=== PATIENT | female | born 1970 | race Caucasian/White ===

== ENCOUNTER 2016-08-22 07:28 | Inpatient (IN) | payer BC ==
[2016-07-28 11:43] VITALS: BMI 32.0
--- NOTE | 2016-07-28 12:18 | PAT Medication Instructions ---
Service Date Jul 28, 2016. Current Home Medication List Acetaminophen (Tylenol), 650 MG PO Q6 PRN for Pain Albuterol Sulfate (Proair Respiclick), 2 PUFF INH Q4 PRN for SOB/Wheezing Escitalopram (Lexapro), 10 MG PO HS Ethinyl Estradiol/Norethindr (Loestrin ), 1 TAB PO HS Fluticasone Propionate (Nasal) (Flonase Allergy Relief), 2 SPRAY CELESTINE HS PRN for prn Ibuprofen (Motrin), 400 MG PO TID PRN for Pain Medication Instructions For Your Scheduled Surgery - Check with surgeon for instructions: Ibuprofen (Motrin), 400 MG PO TID PRN for Pain Ethinyl Estradiol/Norethindr (Loestrin ), 1 TAB PO HS - Take the following medications the morning of surgery with a sip of water: Fluticasone Propionate (Nasal) (Flonase Allergy Relief), 2 SPRAY CELESTINE HS PRN for prn Albuterol Sulfate (Proair Respiclick), 2 PUFF INH Q4 PRN for SOB/Wheezing ( bring with you to hospital morning of surgery) Acetaminophen (Tylenol), 650 MG PO Q6 PRN for Pain - Take the following medications as scheduled the night before surgery: Fluticasone Propionate (Nasal) (Flonase Allergy Relief), 2 SPRAY CELESTINE HS PRN for prn Escitalopram (Lexapro), 10 MG PO HS Albuterol Sulfate (Proair Respiclick), 2 PUFF INH Q4 PRN for SOB/Wheezing\ Acetaminophen (Tylenol), 650 MG PO Q6 PRN for Pain If you have any questions please call us at [phone] (Delisa Lomax PA-C) or [phone] or [phone]
[2016-07-28 12:52] LABS: BASO % 0.4 %; BASO ABS # 0.03 K/uL (0-0.2); COMPLETE YES; EOS % 2.9 %; HEMATOCRIT 37.2 % (37-47); IG% 0.3 %; LYMPH % 26.2 %; LYMPH ABS # 2.08 K/uL (1.2-3.4); MEAN CELL VOLUME 89.9 fL (80-100); MEAN CORPUSCULAR HEMOGLOBIN 31.6 pg (25-34); MEAN CORPUSCULAR HGB CONC 35.2 g/dl (32-36); MEAN PLATELET VOLUME 10.2 fL (7.4-10.4); MONO % 5.4 %; NEUT % 64.8 %; PLATELET COUNT 242 K/uL (130-400); RED BLOOD COUNT 4.14 M/uL (4.2-5.4); WHITE BLOOD COUNT 7.95 K/uL (4.8-10.8)
[2016-07-28 12:57] LABS: URINE APPEARANCE CLEAR (CLEAR); URINE BILIRUBIN NEG (NEG); URINE COLOR YELLOW; URINE NITRITE NEG (NEG); URINE PH 5.5 (4.5-7.5); URINE SPECIFIC GRAVITY 1.014 (1.000-1.030); UROBILINOGEN NEG (NEG); ZZUR CULT IF INDIC CLEAN CATCH NO
[2016-07-28 13:06] LABS: MANUAL MICROSCOPIC REQUIRED? NO; REVIEW REQ? NO
[2016-07-28 13:10] LABS: INR 1.1 (0.9-1.1); PROTHROMBIN TIME (PATIENT) 11.5 SECONDS (9.0-12.0)
--- NOTE | 2016-07-28 13:23 | DIAGNOSTIC IMAGING REPORT ---
CHEST 2 VIEWS ROUTINE CLINICAL HISTORY: Preoperative evaluation. COMPARISON STUDY: No previous studies for comparison. FINDINGS: Lung volumes are normal. There is no consolidation. There is no evidence of pulmonary edema. Cardiac size is normal. Mediastinal contours are normal. There is slight elevation/eventration of the right hemidiaphragm. IMPRESSION: No acute cardiopulmonary findings. Electronically signed by: Gama Hill M.D. 07/28/2016 1:21 PM Dictated Date/Time: 07/28/2016 1:20 PM
[2016-07-28 13:40] LABS: BUN/CREATININE RATIO 24.2 (10-20); CREATININE 0.64 mg/dl (0.60-1.20); POTASSIUM 3.8 mmol/L (3.5-5.1)
--- NOTE | 2016-08-16 12:40 | HISTORY & PHYSICAL EXAMINATION ---
DATE OF ADMISSION: 08/22/2016 CHIEF COMPLAINT: Right hip pain. HISTORY OF PRESENT ILLNESS: Isabel is a 45-year-old female with a 1 year history of pain in her right hip. The patient rates her pain a 6/10. She has pain with her daily activities. She has limited standing and walking tolerance. Pain is worse with weightbearing. The patient has had and anti-inflammatories and injections without relief. She has failed conservative treatment and is scheduled for right hip replacement. PAST MEDICAL HISTORY: She denies heart disease, diabetes or DVT. PAST SURGICAL HISTORY: Left total hip arthroplasty, left knee ACL repair, left knee arthroscopy. SOCIAL HISTORY: The patient denies alcohol or tobacco use. She lives in a 2-story home. She is and works as a school nurse. FAMILY HISTORY: Negative for DVT. MEDICATIONS: Loestrin, Lexapro 10 mg daily, Flonase nasal spray, ibuprofen p.r.n., Tylenol p.r.n., Proventil inhaler p.r.n. ALLERGIES: None. REVIEW OF SYSTEMS: See HPI. Ten other systems reviewed, all negative. PHYSICAL EXAMINATION: VITAL SIGNS: Height is 5 foot 4 inches, weight 187 pounds, BMI is 32. GENERAL: This is a well-developed, well-nourished female who is alert and oriented x3. Mood and affect are appropriate. HEENT: Normocephalic, atraumatic. Mucous membranes are moist and intact. NECK: Supple without lymphadenopathy. HEART: Regular rate and rhythm without murmurs, rubs or gallops. LUNGS: Clear to auscultation without wheezes or rhonchi. ABDOMEN: Soft and nontender. Bowel sounds are equal and active. EXTREMITIES: No ecchymosis, redness or warmth. Thigh and calf are soft and nontender. Log roll of the hip reproduces pain in the groin. Range of motion is decreased. She is neurovascularly intact with +5/5 strength. X-RAY EXAMINATION: AP and lateral views show joint space narrowing and osteophyte formation. IMPRESSION: Degenerative joint disease, right hip. PLAN: The patient will be admitted for a right total hip arthroplasty, direct anterior approach. We will plan on aspirin for DVT prophylaxis. The patient will have [facility] for home physical therapy.
[~2016-08-22] VITALS: Ht 162.6 cm; Wt 84.5 kg
[2016-08-22] VITALS (8 sets, daily range): BP systolic 112–135; BP diastolic 71–81; PULSE 76–91; TEMP 36.3–37; O2SAT 94–99; Ht 162.6 cm; Wt 84.5 kg
[~2016-08-22 07:28] MED LIST: ACET-1311 PO; ACETAMINOPHEN 500 MG TAB PO SCH; ALBU18002 INH; BUPIVACAINE 0.5 % 5 MG/1 ML PF 10ML VIAL ONE; CEFAZOLIN 2000 MG/60 ML D5W 60 ML IV SCH; CeleBREX 200 MG CAP PO SCH; DEXAMETHASONE 4 MG TAB PO SCH; ESCI10TA17 PO; FAMOTIDINE 20 MG TAB PO SCH; FLUT0.15 NAE; GABAPENTIN 300 MG CAP PO SCH; IBUP-1459 PO; LACTATED RINGER'S 1000ML IV SCH; LACTATED RINGER'S 500 ML IV SCH; METOCLOPRAMIDE HCL 10 MG TAB PO SCH; NORE-41 PO; OXYCODONE HCL 10 MG TABCR (OXYCONTIN) PO SCH; POLYMYXIN B SULFATE 100,000 UNITS in NSS 100ML IR SCH; ROPIVACAINE 5MG/ML 30 ML 150 MG, BUPIVACAINE/EPINEPHR 0.5% MPF 30 ML, KETOROLAC TROMETH... INFIL SCH; VANCOMYCIN INJ 400 MG in NSS 100ML IR SCH
[2016-08-22] MEDS ORDERED: ATROPINE SULFATE 0.1 MG/ML 5ML SYR IV PRN (08:30)
[2016-08-22] MEDS ORDERED: FENTANYL CITRATE INJ 50 MCG/1 ML 2 ML VIAL IV PRN (08:30)
[2016-08-22] MEDS ORDERED: ONDANSETRON INJ 2 MG/ML 2 ML VIAL IV PRN ×2 (08:30→12:00)
[2016-08-22] MEDS ORDERED: EpHEDrine SULFATE INJ 50 MG/ML AMP IV PRN (08:30)
--- NOTE | 2016-08-22 08:56 | History & Physical Bridge Note ---
H&P Re-Evaluation Bridge Note: I have examined the patient, reviewed the History & Physical and in the interval since the performance of the History & Physical I have noted the following changes of clinical significance: No changes noted
[2016-08-22] MEDS: TRANEXAMIC ACID INJ 1,000 MG in SODIUM CHLORIDE 0.9% 100ML 100 ML IV SCH ×2 (09:16→13:30)
[2016-08-22] MEDS ORDERED: FENTANYL CITRATE INJ 50 MCG/1 ML 2 ML VIAL ONE (09:32)
[2016-08-22] MEDS ORDERED: MIDAZOLAM HCL 1 MG/ML 2ML VIAL ONE (09:32)
[2016-08-22] MEDS ORDERED: ORTHO JOINT ANESTHETIC ONE (09:42)
[2016-08-22] MEDS ORDERED: POVIDONE-IODINE OP SOLN 30 ML BTL ONE (09:42)
[2016-08-22] MEDS ORDERED: BACITRACIN 50000 UNIT VIAL ONE (09:42)
[2016-08-22] MEDS ORDERED: POVIDONE-IODINE OP SOLN 30 ML BTL TOP ONE (11:01)
[2016-08-22] MEDS ORDERED: BACITRACIN 50000 UNIT VIAL IR ONE (11:01)
[2016-08-22] MEDS ORDERED: PHENYLEPHRINE HCL INJ 10 MG/ML VIAL ONE (11:14)
[2016-08-22] MEDS ORDERED: LIDOCAINE HCL 2% 2 ML VIAL (20MG/ML) ONE (11:14)
[2016-08-22] MEDS ORDERED: PROPOFOL IV EMULSION 10 MG/ML 20 ML VIAL IV ONE (11:14)
--- NOTE | 2016-08-22 11:46 | [facility] Post Operative Brief Note ---
Immediate Operative Summary Operative Date Aug 22, 2016. Pre-Operative Diagnosis right hip degenerative joint disease Post-Operative Diagnosis right hip degenerative joint disease Procedure(s) Performed Right Total Hip Arthroplasty Uncemented Direct Anterior Approach Surgeon Dr. Diego Lerner Power Superintendent Surgeon(s) Tea Green PA-c Estimated Blood Loss 200 ml Findings INFLMMATORY CHANGES Specimens A. Right femur Head Complication(s) None Disposition Recovery Room / PACU
[2016-08-22] MEDS ORDERED: FLUTICASONE PROPIONATE NA SPR 16 GM BTL NAE PRN (12:00)
[2016-08-22] MEDS ORDERED: BISACODYL 10 MG SUPP PR PRN (12:00)
[2016-08-22] MEDS ORDERED: METOCLOPRAMIDE HCL INJ 5 MG/ML 2 ML VIAL IV PRN (12:00)
[2016-08-22] MEDS ORDERED: ZOLPIDEM TARTRATE 5 MG TAB PO PRN (12:00)
[2016-08-22] MEDS ORDERED: MAGNESIUM HYDROXIDE SUSP 30 ML UDC PO PRN (12:00)
[2016-08-22] MEDS ORDERED: MoRPHine SULFATE 2 MG/ML CARP IV PRN (12:00)
[2016-08-22] MEDS ORDERED: DiphenhydrAMINE HCL 50 MG/ML VIAL IV PRN (12:00)
[2016-08-22] MEDS ORDERED: ALUMINUM/MAGNESIUM/SIMETH (MAALOX MAX) 30 ML UDC PO PRN (12:00)
[2016-08-22] MEDS ORDERED: SOD PHOSPHATE/SOD BIPHOSPHATE ENEMA 132 ML BTL PR PRN (12:00)
--- NOTE | 2016-08-22 12:15 | DIAGNOSTIC IMAGING REPORT ---
INTRAOPERATIVE FLUOROSCOPIC IMAGE OF THE RIGHT HIP CLINICAL HISTORY: Right hip arthroplasty. COMPARISON STUDY: No previous studies for comparison. FLUOROSCOPY TIME: 19.6 seconds. FINDINGS: A single AP fluoroscopic image of the right hip demonstrates anatomic alignment of the right hip arthroplasty. There is no fracture or unexpected radiopaque foreign body. Acetabular screw is partially imaged. IMPRESSION: Expected findings during right hip arthroplasty. Electronically signed by: Gama Hill M.D. 08/22/2016 12:14 PM Dictated Date/Time: 08/22/2016 12:13 PM
--- NOTE | 2016-08-22 12:23 | Anesthesiology Progress Note ---
Anesthesia Post Op Note Date & Time Aug 22, 2016 at 12:23 Vital Signs Pain Intensity: 0 Vital Signs Past 12 Hours Date Time Temp Pulse Resp B/P Pulse Ox O2 Delivery O2 Flow Rate FiO2 08/22/16 12:18 37 118/80 08/22/16 12:17 86 16 99 08/22/16 12:17 87 16 08/22/16 12:14 107/92 08/22/16 12:12 83 16 99 08/22/16 12:12 82 08/22/16 12:10 Nasal Cannula 2 08/22/16 12:08 100/72 08/22/16 12:07 91 11 08/22/16 12:07 89 11 100 08/22/16 12:04 103/77 08/22/16 12:02 37.2 98 16 103/77 100 Mask 10 08/22/16 07:48 37 83 18 121/71 97 Room Air Notes Mental Status: alert / awake / arousable, participated in evaluation Pt Amnestic to Procedure: Yes Nausea / Vomiting: adequately controlled Pain: adequately controlled Airway Patency, RR, SpO2: stable & adequate BP & HR: stable & adequate Hydration State: stable & adequate Neuraxial Anesthesia: was administered, sensory block is resolving Anesthetic Complications: no major complications apparent
--- NOTE | 2016-08-22 12:35 | DIAGNOSTIC IMAGING REPORT ---
SINGLE VIEW PELVIS; SINGLE VIEW RIGHT HIP CLINICAL HISTORY: Postoperative examination. FINDINGS: An AP portable view of the hips and lower pelvis with a crosstable lateral portable view of the right hip are obtained. A bipolar right hip arthroplasty has been placed. A single cortical lag screw transfixes the acetabular cup. No acute fracture is seen. A left hip arthroplasty is also noted. There are expected postoperative changes around the right hip including a surgical drain, subcutaneous gas, and soft tissue swelling. Numerous pelvic phleboliths are identified. IMPRESSION: Expected postoperative findings status post right hip arthroplasty. No acute fracture is seen. Electronically signed by: Catarino Shook M.D. 08/22/2016 12:34 PM Dictated Date/Time: 08/22/2016 12:33 PM
[2016-08-22] MEDS: D5W AND 1/2NSS + 20MEQ KCL 1,000 ML IV SCH ×2 (13:29→23:50)
[2016-08-22] MEDS ORDERED: ALBUTEROL HFA 8 GM INHALER INH PRN (13:30)
[2016-08-22] MEDS: KETOROLAC TROMETHAMINE 30 MG/ML VIAL IV. SCH ×3 (13:48→23:49)
[2016-08-22] MEDS: ACETAMINOPHEN 500 MG TAB PO SCH ×2 (13:48→22:34)
[2016-08-22] MEDS: TRAMADOL HCL 50 MG TAB PO PRN ×2 (14:28→21:13)
[2016-08-22] MEDS: OXYCODONE HCL IR 5 MG TAB (IMMEDIATE RELEASE) PO PRN ×2 (15:44→23:49)
[2016-08-22] MEDS ORDERED: TRANEXAMIC ACID INJ 1,000 MG in SODIUM CHLORIDE 0.9% 100ML 100 ML IV ONE (18:00)
[2016-08-22] MEDS: CEFAZOLIN IV 2,000 MG in DEXTROSE 5% 50ML 50 ML IV SCH (18:51)
[2016-08-22] MEDS ORDERED: SENNA 8.6 MG TAB PO SCH (21:00)
[2016-08-22] MEDS ORDERED: JUNEL FE PO SCH (21:00)
[2016-08-22] MEDS ORDERED: ESCITALOPRAM OXALATE 10 MG TAB PO SCH (21:00)
[2016-08-22] MEDS: ASPIRIN 81 MG ECTAB PO SCH (21:14)
--- NOTE | 2016-08-22 22:37 | OPERATIVE REPORT ---
DATE OF OPERATION: 08/22/2016 PREOPERATIVE DIAGNOSIS: Degenerative arthritis, right hip. POSTOPERATIVE DIAGNOSIS: Same with inflammatory changes right hip. PROCEDURE: Right total hip replacement. SURGEON: Mark Lerner MD. SUPERVISOR [employer]: PIPE Varghese. ANESTHESIA: Spinal. BLOOD LOSS: 200 mL REPLACEMENT FLUIDS: 1800 mL of crystalloid. DRAINS: Hemovac x1. CULTURES: None. COMPLICATIONS: None. COMPONENTS USED: [employer] hip system: Acetabulum size 50, femur size 3 standard offset, femoral head -3, 32 mm. NOTE: PIPE Varghese, was present and assisted throughout due to the complicated nature of this case. She helped with preparation and setup, first assisted throughout, and personally closed the fascial, subcutaneous and skin layers, and applied the postop dressing. DESCRIPTION: Following satisfactory spinal, the patient was supine. The right hip was placed in the tractioning device and the left leg in the well leg ny. The right leg was then prepared with ChloraPrep and draped sterilely. Following a surgical timeout, an anterior approach in the interval between the sartorius and tensor muscles was completed. The patient had a moderately large subcutaneous fat layer with modest bleeding. The circumflex femoral vessels were identified and ligated, and anterior capsulotomy was performed. The knee showed significant inflamed synovium and a large amount of synovial fluid. The femoral neck and head were trimmed and removed and showed severe degenerative changes. There was moderate bleeding from the femoral canal. This was not from any single source but just oozing from the fresh cut surface of the canal. The acetabular self-retraining retractor was placed. Acetabular preparation and reaming was completed with fluoroscopic guidance. A 50 shell was impacted into an anatomic position and confirmed with fluoroscopy. A single dome screw was placed and local anesthetic was placed. After irrigation, the polyethylene liner was placed. The femur was placed into a position of external rotation, extension and adduction. Femoral canal was prepared up to a size 3. A trial reduction with a -3 head showed good fit and fill of the proximal canal with fluoroscopy and orthodoxy of leg lengths using anatomic landmarks. The hip was dislocated. The trial component was removed. The final implant was placed, and after irrigation, the hip was reduced, the fluoroscopy confirming similar position. A Betadine soak and local anesthetic was placed. After 5 minutes, the Betadine was irrigated. The capsule was closed with #1 Vicryl interrupted. A drain was then placed. The fascia was closed with a running suture of #1 Vicryl, the subcutaneous tissues with 1 and 2-0 Vicryl, the skin with a running subcuticular stitch of 3-0 V-Loc. Dermabond and a dry dressing were applied. The patient was returned to her bed in stable condition. I attest to the content of the Intraoperative Record and any orders documented therein. Any exceptio ns are noted below.
[2016-08-23] MEDS: CEFAZOLIN IV 2,000 MG in DEXTROSE 5% 50ML 50 ML IV SCH (02:54)
[2016-08-23 03:08] VITALS: BP 124/68; PULSE 83; TEMP 36.9; O2SAT 95
[2016-08-23] MEDS: OXYCODONE HCL IR 5 MG TAB (IMMEDIATE RELEASE) PO PRN ×3 (05:05→15:26)
[2016-08-23] MEDS: KETOROLAC TROMETHAMINE 30 MG/ML VIAL IV. SCH ×3 (05:05→17:25)
[2016-08-23] MEDS: ACETAMINOPHEN 500 MG TAB PO SCH ×2 (05:06→13:55)
[2016-08-23 07:10] VITALS: BP 127/72; PULSE 87; TEMP 36.8; O2SAT 94
[2016-08-23 07:37] LABS: BASO % 0.1 %; BASO ABS # 0.01 K/uL (0-0.2); COMPLETE YES; EOS % 0.1 %; HEMATOCRIT 30.8 % (37-47); IG% 0.3 %; LYMPH % 12.1 %; MEAN CELL VOLUME 91.4 fL (80-100); MEAN CORPUSCULAR HEMOGLOBIN 31.2 pg (25-34); MEAN CORPUSCULAR HGB CONC 34.1 g/dl (32-36); MEAN PLATELET VOLUME 10.4 fL (7.4-10.4); MONO % 5.2 %; NEUT % 82.2 %; PLATELET COUNT 231 K/uL (130-400); RED BLOOD COUNT 3.37 M/uL (4.2-5.4); WHITE BLOOD COUNT 13.25 K/uL (4.8-10.8)
[2016-08-23 07:53] LABS: BUN/CREATININE RATIO 18.3 (10-20); CALCIUM 8.2 mg/dl (8.5-10.1); CREATININE 0.71 mg/dl (0.60-1.20)
--- NOTE | 2016-08-23 08:06 | Discharge Instructions ---
Discharge Instructions Admission Reason for Admission: Right Hip Degenerative Arthritis Discharge Discharge Diagnosis / Problem: sp right MALIA Discharge Goals Goal(s): Decrease discomfort, Improve function, Increase independence Activity Recommendations Activity Limitations: per Instructions/Follow-up section . Instructions / Follow-Up Instructions / Follow-Up ACTIVITY RECOMMENDATIONS: SELF CARE INSTRUCTIONS AFTER TOTAL HIP REPLACEMENT : Direct Anterior Approach Until the incision and soft tissues around your hip have healed, there is a possibility that the hip prosthesis could dislocate. A. Hip flexion ( Up & Down out of chair or steps ) may be difficult. This is normal. B. Numbness in front of the thigh is also normal for a few weeks. C. Use hand rails when walking on stairs. D. Wear low heeled shoes with non-slip soles. E. Be sure that your floors are free of things that could trip you - throw rugs , electrical cords, small objects. Avoid wet and waxed floors, especially with crutches and canes. F. Try to walk several times a day with rest periods between. G. Continue with all the exercises taught to you in the hospital. Again, make walking a part of your daily routine. SPECIAL CARE INSTRUCTIONS: VERY IMPORTANT TO READ AND REVIEW A. You may still be at risk for phlebitis and blood clots. 1. Wear surgical stockings (GIOVANNI hose) for 2 weeks after surgery to improve circulation and reduce swelling. 2. Take Aspirin 81mg twice daily for 4 weeks or as directed by your doctor. This is your blood thinner. 3. High risk patients may be prescribed a stronger blood thinner if necessary. 4. If you are on Coumadin normally, your family doctor/historian research assistant should monitor your blood work. Expect a phone call the day of or the day after bloodwork is drawn to adjust your dosage. B. You must take antibiotics before having dental work, bladder, bowel and other surgery. Your doctor will provide you with a permanent card to carry describing precautions. C. Call [facility] if you have a fever, redness or swelling around the incision, cloudy drainage from incision, or sudden increase in pain in your hip, not relieved by your regular pain medication. D. Please call the office at if you have any concerns or questions about your operation or recovery. * YOU MAY SHOWER, NO TUB BATHS UNTIL CLEARED BY YOUR DOCTOR. - Keep an extra close eye on the top portion of your incision. Be sure to keep clean & dry. * WEAR GIOVANNI HOSE 20 HOURS PER DAY FOR 2 WEEKS. * YOU MAY PROGRESS FROM A WALKER, TO A CANE, TO INDEPENDENT AT YOUR OWN PACE. * MOST PATIENTS WILL HAVE HOME NURSING FOR THERAPY. IF YOU DECIDE TO DO OUTPATIENT PHYSICAL THERAPY, PLEASE SCHEDULE THIS 3 TIMES PER WEEK. * DERMABOND Prineo- This is a mesh tape dressing that is covered with glue. It should remain in place until the incision is properly healed, usually 10-14 days. This dressing is designed to naturally slough off. You may trim the excess mesh tape as it peels off. Incision may be briefly wet in a shower. Dry immediately by blotting with a clean, dry towel. Do not bath or swim until instructed by your doctor. Do not scratch, rub, or pick at the dressing. Do not apply any topical ointments or lotions until dressing is completely removed and/or instructed by your doctor. There may be a small piece of suture material at one end of your incision. Do not pull or trim this. If it is bothersome or catching on clothing, you may cover it with a band-aid. FOLLOW UP VISIT: If appointment is not already scheduled: Please call [facility] to make a follow-up appointment for 2 weeks after your surgery at . Current Hospital Diet Patient's current hospital diet: Regular Diet Discharge Diet Recommended Diet: Regular Diet Procedures Procedures Performed: Right Total Hip Arthroplasty Uncemented Direct Anterior Approach Pending Studies Studies pending at discharge: no Medical Emergencies . Who to Call and When: Medical Emergencies: If at any time you feel your situation is an emergency, please call 911 immediately. . Non-Emergent Contact Non-Emergency issues call your: Primary Care Provider . "Provider Documentation" section prepared by Tea Green. VTE Core Measure Inpt VTE Proph given/why not?: Other Anticoagulation, T.E.D. Stockings, SCD's
[2016-08-23] MEDS ORDERED: RXC5 PO (08:08)
[2016-08-23] MEDS ORDERED: SNK PO (08:08)
[2016-08-23] MEDS ORDERED: ACET-1138 PO (08:08)
[2016-08-23] MEDS ORDERED: ASPEC81 PO (08:08)
[2016-08-23] MEDS ORDERED: ONDA8TAB6 PO (08:08)
[2016-08-23] MEDS ORDERED: CLB200 PO (08:08)
--- NOTE | 2016-08-23 08:23 | DISCHARGE SUMMARY ---
DATE OF DISCHARGE: 08/23/2016 DISCHARGE DIAGNOSIS: Degenerative joint disease right hip. SECONDARY DIAGNOSIS: None. CONSULTATIONS: None. COMPLICATIONS: None. PROCEDURE: The patient underwent a direct anterior right total hip arthroplasty with Dr. Lerner on 08/22/2016. BRIEF HISTORY: Please see previously dictated history and physical. HOSPITAL SUMMARY: The patient was admitted on the above day for the above procedure. The procedure went without complication. Postop day 1 the patient was feeling well without complaints. Vital signs were stable. She was afebrile. Dressing was clean, dry and intact. She was neurovascularly intact. Calves were soft and nontender. Hemovac drained 255 and 50 mL per shift. Hemoglobin was 10.5. The patient began physical therapy per protocol. She was discharged to home later that day in stable condition. For further review please the chart. Lab, x-ray data and discharge instructions as per chart.
[2016-08-23] MEDS: ASPIRIN 81 MG ECTAB PO SCH (08:30)
[2016-08-23] MEDS: D5W AND 1/2NSS + 20MEQ KCL 1,000 ML IV SCH (08:31)
[2016-08-23] MEDS ORDERED: MULTIVITAMIN TAB PO SCH (09:00)
[2016-08-23] MEDS ORDERED: PANTOprazole SOD 40 MG TAB PO SCH (09:00)
[2016-08-23 09:18] VITALS: BP 127/72; PULSE 87; TEMP 36.8; O2SAT 94
[2016-08-23 10:38] VITALS: BP 129/81; PULSE 83; TEMP 37; O2SAT 98
[2016-08-23 15:18] VITALS: BP 132/82; PULSE 82; TEMP 36.7; O2SAT 99
[2016-08-24] MEDS ORDERED: CeleBREX 200 MG CAP PO SCH (21:00)
== END 2016-08-23 18:08 | disposition home or self-care (01) | DRG 470 ==
LOC: ENRESERVDT → ENRESERVTM → C.ACU 07:28 → C.3E 11:52
PROVIDERS: ADMIT Orthopaedic Surgery; ATTEND Orthopaedic Surgery
PROC: 0SR904A Replacement of Right Hip Joint with Ceramic on Polyethylene Synthetic Substitute, Uncemented, Open Approach (ICD-10-PCS; principal; 2016-08-22 09:30)
DX: M16.11 Unilateral primary osteoarthritis, right hip (principal); J45.909 Unspecified asthma, uncomplicated; F41.9 Anxiety disorder, unspecified; F32.9 Major depressive disorder, single episode, unspecified; E66.9 Obesity, unspecified; Z68.32 Body mass index [BMI] 32.0-32.9, adult; Z87.891 Personal history of nicotine dependence; Z96.642 Presence of left artificial hip joint; Z79.890 Hormone replacement therapy; Z79.899 Other long term (current) drug therapy

== ENCOUNTER → 2018-02-23 | Outpatient (CLI) | payer BC ==
[~2018-02-23] MED LIST changes: +ACET-1138 PO; -ACET-1311 PO; -ACETAMINOPHEN 500 MG TAB PO SCH; +ASPI-320 PO; -BUPIVACAINE 0.5 % 5 MG/1 ML PF 10ML VIAL ONE; -CEFAZOLIN 2000 MG/60 ML D5W 60 ML IV SCH; +CLB200 PO; -CeleBREX 200 MG CAP PO SCH; -DEXAMETHASONE 4 MG TAB PO SCH; -FAMOTIDINE 20 MG TAB PO SCH; -GABAPENTIN 300 MG CAP PO SCH; -IBUP-1459 PO; -LACTATED RINGER'S 1000ML IV SCH; -LACTATED RINGER'S 500 ML IV SCH; -METOCLOPRAMIDE HCL 10 MG TAB PO SCH; -OXYCODONE HCL 10 MG TABCR (OXYCONTIN) PO SCH; -POLYMYXIN B SULFATE 100,000 UNITS in NSS 100ML IR SCH; -ROPIVACAINE 5MG/ML 30 ML 150 MG, BUPIVACAINE/EPINEPHR 0.5% MPF 30 ML, KETOROLAC TROMETH... INFIL SCH; +RXC5 PO; +SNK PO; -VANCOMYCIN INJ 400 MG in NSS 100ML IR SCH
--- NOTE | 2018-02-23 11:09 | DIAGNOSTIC IMAGING REPORT ---
LEFT THUMB 3 VIEWS HISTORY: Left THUMB PAIN COMPARISON: None. FINDINGS: There is no fracture or dislocation. Soft tissues are unremarkable. No radiopaque foreign bodies. IMPRESSION: No fractures. Electronically signed by: Alton Henderson M.D. 02/23/2018 11:08 AM Dictated Date/Time: 02/23/2018 11:06 AM
--- NOTE | 2018-02-23 11:13 | DIAGNOSTIC IMAGING REPORT ---
CERVICAL SPINE 5 VIEWS HISTORY: CERVICALGIA COMPARISON: None. FINDINGS: The cervical spine is visualized from C1 through the superior endplate of T1. There is no fracture. No subluxation. Mild reversal the normal lordotic curvature within the mid to lower cervical spine. Mild disc space narrowing at C5-C6 with small endplate osteophytes. Prevertebral soft tissues and the atlantodens interval are intact. Mild S-shaped scoliosis of the cervicothoracic spine with a convex curvature to the right within the cervical spine and a convex curvature to the left within the upper thoracic spine. IMPRESSION: No fracture or subluxation within the cervical spine. Mild degenerative disc disease at C5-C6. Mild S-shaped scoliosis. Electronically signed by: Alton Henderson M.D. 02/23/2018 11:12 AM Dictated Date/Time: 02/23/2018 11:08 AM
[2018-02-23 12:38] LABS: ALBUMIN 3.6 gm/dl (3.4-5.0); ALKALINE PHOSPHATASE 48 U/L (45-117); ALT/SGPT 26 U/L (12-78); AST/SGOT 23 U/L (15-37); BLOOD UREA NITROGEN 19 mg/dl (7-18); CALCIUM 8.4 mg/dl (8.5-10.1); CARBON DIOXIDE 26 mmol/L (21-32); CHOLESTEROL 220 mg/dl (0-200); GLUCOSE 74 mg/dl (70-99); LDL CHOLESTEROL CALCULATED 151 mg/dl; POTASSIUM 4.2 mmol/L (3.5-5.1); SODIUM 138 mmol/L (136-145); TOTAL PROTEIN 7.3 gm/dl (6.4-8.2)
== END | disposition home or self-care (01) ==
LOC: C.RAD 10:19
PROVIDERS: ATTEND Family Medicine
DX: M54.2 Cervicalgia (principal); M79.645 Pain in left finger(s)